=== PATIENT | female | born 1945 | race Caucasian/White ===

== ENCOUNTER 2016-11-14 13:30 | Inpatient (IN) | payer OTHER, BC ==
--- NOTE | 2016-11-18 13:58 | HP ---
Admitting History and Physical - Primary Care Physician PCP: Ashwin Upton - Admission Chief Complaint: left breast cancer History of Present Illness: 71 yo female is S/P right mastectomy (05/02/2016) and chemo for an invasive ductal carcinoma with LN involvement. Prior to surgery, she was noted to have a left breast lesion at 3 oclock that was bxed and benign on path. The patient's left breast core bx slide was reviewed again and was noted to have an invasive lobular component. The MRI done prior to surgery was negative for suspicious finding in the left breast. Decision was made to continue with chemo. Patient presented after chemo for surgical discussion about the left breast cancer. Patient is now presenting for left mastectomy, snbx poss andx with reconstruction. History Source: Patient Limitations to Obtaining History: No Limitations - Past Medical History Heme/Onc: Yes: Cancer (right breast cancer 2012 and 2015) Musculoskeletal: Yes: Osteoarthritis Endocrine: Yes: Hypothyroidism Additional Past Medical History: Rheumatoid arthritis - Past Surgical History Past Surgical History: Yes: Joint Replacement (TKR 2008), Mastectomy (right with andx and reconstruction (04/2016)) Additional Past Surgical History: tendon repair of finger 2000 - Smoking History Smoking history: Never smoked Have you smoked in the past 12 months: No - Alcohol/Substance Use Hx Alcohol Use: No Home Medications - Allergies Allergies/Adverse Reactions: Allergies Allergy/AdvReac Type Severity Reaction Status Date / Time codeine AdvReac Severe STOMACH Verified 05/02/16 11:44 NAUSEA CARBACAINE AdvReac Intermediate Rash Uncoded 05/02/16 11:44 - Home Medications Home Medications: Ambulatory Orders B Infantis/B Ani/B Michael/B Bifid [Probiotic 4X Caplet] 2 each PO BID 03/25/13 Levothyroxine [Synthroid] 50 mcg PO DAILY 03/25/13 Minocycline HCl 100 mg PO DAILY 03/25/13 Ascorbic Acid [Vitamin C -] 500 mg PO BID 04/23/16 Bromelains 500 mg PO BID 04/23/16 Diclofenac Sodium/Misoprostol [Arthrotec 75 mg-200 Mcg Tab] 1 each PO BID Metoprolol Succinate [Toprol Xl] 25 mg PO BID 04/23/16 Multivitamins [Tab-A-Vit -] 1 tab PO DAILY 04/23/16 Red Yeast Rice 600 mg PO DAILY 04/23/16 Resveratrol 100 mg PO DAILY 04/23/16 Turmeric [Curcumin] 250 gm MC DAILY 04/23/16 Ubidecarenone [Co Q-10] 100 mg PO DAILY 04/23/16 Vitamin B Complex 1 each PO BID 04/23/16 Alprazolam [Xanax] 0.5 mg PO PRN PRN 05/02/16 Family Disease History - Family Disease History Family Disease History: CA: Father (pancreatic vs colon cancer), Other: Mother ( CVA) Review of Systems - Review of Systems Cardiovascular: reports: No Symptoms Respiratory: reports: No Symptoms Physical Examination Constitutional: Yes: Well Nourished, Calm Breast(s): Yes: Other (Well healed right chest incision over the tissue communication spec. No suspicious masses or adenopathy noted on the left side.) Problem List - Problems (1) Breast cancer, left Code(s): C50.912 - MALIGNANT NEOPLASM OF UNSPECIFIED SITE OF LEFT FEMALE BREAST Qualifiers: Breast location: overlapping sites of breast Patient sex: female Qualified Code(s): C50.812 - Malignant neoplasm of overlapping sites of left female breast Assessment/Plan Left mastectomy with snbx, possible andx and reconstruction
[2016-11-29 17:03] VITALS: BMI 24.2
[2016-12-05] MEDS ORDERED: DEXAMETHASONE SOD PHOSPHATE/PF 10 MG/ML SDV ONE (10:37)
[2016-12-05] MEDS ORDERED: MIDAZOLAM HCL 2 MG/2 ML SINGLE DOSE VIAL ONE (10:38)
[2016-12-05] MEDS ORDERED: ROPIVACAINE HCL 0.5% 30ML VIAL ONE (10:38)
[2016-12-05] MEDS ORDERED: ACETAMINOPHEN 325 MG TABLET (FP) PO PRN (13:48)
[2016-12-05] MEDS ORDERED: ONDANSETRON 4 MG/2 ML VIAL IVPB PRN (13:48)
[2016-12-05] MEDS ORDERED: ZOLPIDEM TARTRATE 5 MG TABLET PO PRN (13:48)
[2016-12-05] MEDS ORDERED: DESFLURANE GAS 240 ML BOTTLE IH ONE (13:50)
[2016-12-05] MEDS ORDERED: DEXTROSE 5%-0.45% SALINE 1,000 ML IV SCH (14:00)
[2016-12-05] MEDS ORDERED: oxyCODONE HCL 5 MG TABLET PO PRN ×2 (15:13)
[2016-12-05] MEDS: PROMETHAZINE HCL 25 MG/1 ML VIAL IVPUSH ONE ×2 (15:15→16:11)
[2016-12-05] MEDS ORDERED: LACTATED RINGERS SOLUTION 1,000 ML IV SCH (15:15)
[2016-12-05] MEDS: CEFAZOLIN 1 GM/D5W 50 ML IVPB SCH ×2 (16:11→21:11)
[2016-12-05] MEDS ORDERED: hydrALAZINE HCL 50 MG TABLET (FP) PO SCH (22:00)
[2016-12-05] MEDS ORDERED: METOPROLOL SUCCINATE 25 MG TAB.SR.24H (FP) PO SCH (22:00)
[2016-12-06] MEDS: CEFAZOLIN 1 GM/D5W 50 ML IVPB SCH ×2 (02:06→09:00)
[2016-12-06 06:08] VITALS: BP 112/62; TEMP 98.1
[2016-12-06] MEDS ORDERED: LEVOTHYROXINE NA 50 MCG TABLET (FP) PO SCH (07:00)
[2016-12-06 08:37] LABS: MCH 26.5 pg (25.7-33.7); MCHC 32.8 g/dl (32.0-36.0); MEAN CELL VOLUME 80.5 fl (80-96); MEAN PLT VOLUME 8.3 fl (7.5-11.1); PLATELET COUNT 294 K/MM3 (134-434); RDW 14.6 % (11.6-15.6); WHITE BLOOD COUNT 7.9 K/mm3 (4.0-10.8)
--- NOTE | 2016-12-06 09:21 | PN ---
Progress Note, Physician Chief Complaint: S/P left mastectomy with tissue disk sander, snbx with lymphoscintogram POD#1 History of Present Illness: Patient seen this am and reports occasional burning sensation in the axilla but otherwise has good pain control. Patient is comfortable and would like to be discharged today. - Current Medication List Current Medications: Active Medications Acetaminophen (Tylenol -) 650 mg PO Q4H PRN PRN Reason: FEVER Last Admin: 12/06/16 02:06 Dose: 650 mg Fentanyl (Sublimaze Injection -) 25 mcg IVPUSH [id number] PRN PRN Reason: PAIN Stop: 12/08/16 15:17 Heparin Sodium (Porcine) (Heparin -) 5,000 unit SQ BID SANJAY Hydralazine HCl (Apresoline -) 50 mg PO HS [facility] Last Admin: 12/05/16 21:11 Dose: Not Given Hydralazine HCl (Apresoline -) 25 mg PO DAILY SANJAY Cefazolin Sodium (Ancef 1 Gm Premixed Ivpb -) 50 mls @ 100 mls/hr IVPB Q6H-IV SANJAY Stop: 12/12/16 14:59 Last Admin: 12/06/16 02:06 Dose: 100 mls/hr Dextrose/Sodium Chloride (D5-1/2ns -) 1,000 mls @ 100 mls/hr IV ASDIR SANJAY Last Admin: 12/05/16 16:09 Dose: Not Given Lactated Ringer's (Lactated Ringers Solution) 1,000 mls @ 125 mls/hr IV ASDIR SANJAY Last Admin: 12/05/16 16:11 Dose: Not Given Levothyroxine Sodium (Synthroid -) 50 mcg PO DAILY@0700 [facility] Last Admin: 12/06/16 06:23 Dose: 50 mcg Metoprolol Succinate (Toprol Xl -) 50 mg PO DAILY SANJAY Metoprolol Succinate (Toprol Xl -) 25 mg PO HS [facility] Last Admin: 12/05/16 21:12 Dose: Not Given Ondansetron HCl (Zofran Injection) 4 mg IVPB Q6H PRN PRN Reason: NAUSEA AND/OR VOMITING Oxycodone HCl (Roxicodone -) 5 mg PO Q3H PRN PRN Reason: PAIN LEVEL 1-5 Oxycodone HCl (Roxicodone -) 10 mg PO Q3H PRN PRN Reason: PAIN LEVEL 6-10 Zolpidem Tartrate (Ambien -) 5 mg PO HS PRN PRN Reason: Insomnia - Objective Vital Signs: Vital Signs Temperature 98.1 F 12/06/16 06:00 Pulse Rate 88 12/06/16 06:00 Respiratory Rate 18 12/06/16 09:00 Blood Pressure 112/62 12/06/16 06:00 O2 Sat by Pulse Oximetry (%) 94 L 12/06/16 09:00 Constitutional: Yes: Well Nourished, Calm Breast(s): Yes: Left (Left flap is warm with steristrips in place. No swelling , discharge or erythema noted. OSVALDO intact with serosanginous discharge) Labs: CBC, BMP 12/06/16 07:47 Problem List - Problems (1) Breast cancer, left Assessment/Plan: Plan: Discharge home today on axbx. Patient only wants to take Tylenol ES Make appt to see Dr. Zaidi and Dr. Upton next week Monitor OSVALDO output. Code(s): C50.912 - MALIGNANT NEOPLASM OF UNSPECIFIED SITE OF LEFT FEMALE BREAST Qualifiers: Breast location: overlapping sites of breast Patient sex: female Qualified Code(s): C50.812 - Malignant neoplasm of overlapping sites of left female breast; Z17.0 - Estrogen receptor positive status [ER+]
[2016-12-06 09:48] VITALS: PULSE 97
[2016-12-06] MEDS ORDERED: HEPARIN NA (PORCINE) 5,000 UNITS/ML 1ML VIAL SQ SCH (10:00)
[2016-12-06] MEDS ORDERED: METOPROLOL SUCCINATE 50 MG TAB.SR.24H (FP) PO SCH (10:00)
[2016-12-06] MEDS ORDERED: hydrALAZINE HCL 25 MG TABLET (FP) PO SCH (10:00)
--- NOTE | 2016-12-06 10:04 | DS ---
Physical Examination Vital Signs: Vital Signs Temperature 98.1 F 12/06/16 06:00 Pulse Rate 97 H 12/06/16 09:48 Respiratory Rate 18 12/06/16 09:00 Blood Pressure 112/62 12/06/16 06:00 O2 Sat by Pulse Oximetry (%) 96 12/06/16 09:48 Constitutional: Yes: Well Nourished, Calm Wound/Incision: Yes: Clean/Dry, Well Approximated Labs: CBC, BMP 12/06/16 07:47 Discharge Summary Reason For Visit: LEFT BREAST CA Current Active Problems Breast cancer, left (Acute) Condition: Good - Instructions Diet, Activity, Other Instructions: BREAST SURGERY INSTRUCTIONS Syd Upton M.D., FACS Ashwin Upton M.D., MATTIE Miller M.D., FACS 1. Please call the office at to make a follow up appointment with your surgeon. This number can be also used for any urgent issues you may have. 2. Call us immediately if any of the following occur: *Bleeding from the incision or drain site (a small amount is normal) *Fever or chills *Redness and worsening tenderness around the surgical site *Drainage of pus or fluid from the incision or drain site 3. You may change the surgical dressing two (2) days after your surgery, and may shower then. If you have drains, you may shower after they have been removed, until then take a sponge bath. 4. It is normal for there to be some bruising and tenderness around the surgical site, and the breast may also be firm in this area. 5. Please wear a comfortable bra (sports or surgical bra) all day and all night until your first follow-up visit with your surgeon. 6. The pain medicine you have been prescribed may make you constipated; make sure you drink plenty of water. You may use an over the counter laxative if needed. 7. You may resume your normal diet after surgery, although you may want to avoid rich foods for the first twenty-four (24) hours after surgery. Alcoholic drinks should be avoided while taking the prescribed pain medicine. 8. You may resume normal activities as long as there is no discomfort, but do not do upper body exercises until after your follow-up appointment. Do not lift anything heavier than a large phone book. You may resume driving once you have stopped taking the prescribed pain medicine and feel comfortable doing arm movements. Referrals: Ashwin Upton MD [Staff Physician] - Disposition: HOME - Home Medications Comprehensive Discharge Medication List: Ambulatory Orders Levothyroxine [Synthroid -] 50 mcg PO DAILY 03/25/13 Minocycline HCl 100 mg PO DAILY 03/25/13 Metoprolol Succinate [Toprol Xl] 50 mg PO DAILY 04/23/16 Vitamin B Complex 1 each PO BID 04/23/16 Hydralazine HCl 50 mg PO HS 11/29/16 Hydralazine HCl [Apresoline -] 25 mg PO DAILY 11/29/16 Metoprolol Succinate [Toprol XL -] 25 mg PO HS 11/29/16 Cefadroxil 500 mg PO BID #20 capsule 12/06/16
--- NOTE | 2016-12-06 10:36 | PN ---
Progress Note, Physician Chief Complaint: Pt is s/p left breast mastectomy with sentinel node biopsy and TE placement with alloderm - Current Medication List Current Medications: Active Medications Acetaminophen (Tylenol -) 650 mg PO Q4H PRN PRN Reason: FEVER Last Admin: 12/06/16 02:06 Dose: 650 mg Fentanyl (Sublimaze Injection -) 25 mcg IVPUSH [id number] PRN PRN Reason: PAIN Stop: 12/08/16 15:17 Heparin Sodium (Porcine) (Heparin -) 5,000 unit SQ BID SANJAY Hydralazine HCl (Apresoline -) 50 mg PO HS [facility] Last Admin: 12/05/16 21:11 Dose: Not Given Hydralazine HCl (Apresoline -) 25 mg PO DAILY SANJAY Cefazolin Sodium (Ancef 1 Gm Premixed Ivpb -) 50 mls @ 100 mls/hr IVPB Q6H-IV SANJAY Stop: 12/12/16 14:59 Last Admin: 12/06/16 02:06 Dose: 100 mls/hr Dextrose/Sodium Chloride (D5-1/2ns -) 1,000 mls @ 100 mls/hr IV ASDIR [facility] Last Admin: 12/05/16 16:09 Dose: Not Given Lactated Ringer's (Lactated Ringers Solution) 1,000 mls @ 125 mls/hr IV ASDIR [facility] Last Admin: 12/05/16 16:11 Dose: Not Given Levothyroxine Sodium (Synthroid -) 50 mcg PO DAILY@0700 [facility] Last Admin: 12/06/16 06:23 Dose: 50 mcg Metoprolol Succinate (Toprol Xl -) 50 mg PO DAILY [facility] Metoprolol Succinate (Toprol Xl -) 25 mg PO HS [facility] Last Admin: 12/05/16 21:12 Dose: Not Given Ondansetron HCl (Zofran Injection) 4 mg IVPB Q6H PRN PRN Reason: NAUSEA AND/OR VOMITING Oxycodone HCl (Roxicodone -) 5 mg PO Q3H PRN PRN Reason: PAIN LEVEL 1-5 Oxycodone HCl (Roxicodone -) 10 mg PO Q3H PRN PRN Reason: PAIN LEVEL 6-10 Zolpidem Tartrate (Ambien -) 5 mg PO HS PRN PRN Reason: Insomnia - Objective Vital Signs: Vital Signs Temperature 98.1 F 12/06/16 06:00 Pulse Rate 97 H 12/06/16 09:48 Respiratory Rate 18 12/06/16 09:00 Blood Pressure 112/62 12/06/16 06:00 O2 Sat by Pulse Oximetry (%) 96 12/06/16 09:48 Constitutional: Yes: Well Nourished, No Distress Eyes: Yes: WNL HENT: Yes: WNL Neck: Yes: WNL Cardiovascular: Yes: WNL Respiratory: Yes: WNL Gastrointestinal: Yes: WNL ...Rectal Exam: Yes: Deferred Genitourinary: Yes: WNL Breast(s): Yes: Left, Other (breast with appropriate swelling and ecchymosis. OSVALDO drain holding suction. Steri strips in place c/d/i. No s/s of infection) Musculoskeletal: Yes: WNL Extremities: Yes: WNL Edema: No Wound/Incision: Yes: Clean/Dry, Steri Strips, Dressing Dry and Intact Neurological: Yes: WNL ...Motor Strength: WNL Psychiatric: Yes: WNL Additional Findings/Remarks: Pt will be discharged today. She will cont with post op bra. Please dont get dressing or drains wet. Pt can call office for appt. Labs: CBC, BMP 12/06/16 07:47
--- NOTE | 2016-12-06 13:24 | OP ---
DATE OF OPERATION: 12/05/2016 PREOPERATIVE DIAGNOSIS: Left breast cancer, overlapping regions, with a history of right breast cancer status post right mastectomy. POSTOPERATIVE DIAGNOSIS: Left breast cancer, overlapping regions, with a history of right breast cancer status post right mastectomy. PROCEDURE: Left breast total mastectomy with left axillary sentinel lymph node biopsy and baker pastry reconstruction. ANESTHESIA: General endotracheal anesthesia. PRIMARY SURGEON: Analilia Cr MD MULTIGRAPH OPERATOR: TERE Leyva PRIMARY SURGEON FOR PRACTICE BILLING ASSOCIATE RECONSTRUCTION ON THE LEFT: Analilia Zaidi MD, with his certified surgical first assistant Kaylie physician assistant distribution manager. COMPLICATIONS: There were no complications. DESCRIPTION OF PROCEDURE: Briefly, the patient is a 71-year-old white female who does have a history of undergoing a right breast wide excision back in 2012 for a 1-cm infiltrating ductal cancer with negative sentinel node. It was ER/MD positive and HER-2/eunice negative and she had intraoperative radiation. She was placed on tamoxifen. She then developed a superficial recurrence which had dermal involvement in March 2016 and underwent a right breast mastectomy with baker pastry reconstruction for a multicentric right breast cancer with the largest focus measuring 3.2 cm, which was a poorly differentiated invasive duct cancer which had lymphovascular invasion, and she ended up with 2 out of 17 positive lymph nodes. She had extranodal extension and underwent chemotherapy with AC followed by THP. The patient had had a left breast biopsy prior to that mastectomy, which was read as benign but later was found to have a focus of invasive lobular cancer which was ER/MD positive and HER-2/eunice negative. She underwent chemotherapy and now presents for treatment of the small left breast 3 o'clock infiltrating lobular cancer. She was given the option of a lumpectomy but decided to go forward with a mastectomy. She has refused genetic testing. She was seen by Plastic Surgery, who advised her undergoing an baker pastry on the left side as well. She was brought to the operating room on December 05, 2016. In the holding area site verification was made and informed consent was obtained. She did undergo lymphoscintigraphy at [facility] prior to coming to the [facility] area. She was brought into the operating room and laid on the OR table in the supine position. Venodynes were placed on the lower extremities. Both breasts were sterilely prepped and draped in the usual fashion, and she was given general endotracheal anesthesia. She was given a gram of Ancef prior to incision. Lymphazurin blue 3 mL was injected intradermally and klever-tumorally around the left breast nipple-areolar complex. An incision was made just below the hair-bearing area of the left axilla and a sentinel lymph node biopsy was accomplished. She had 5 sentinel nodes removed, and they had 10-second gamma counts of 3929, 1383, 1150, 2499, and 8169. Three of these nodes were blue. She underwent frozen section of the nodes, which all came back negative. Background count estimate of these 5 nodes was 215. Hemostasis was achieved. At this point the total mastectomy was accomplished with a classical elliptical incision around the nipple-areolar complex, saving enough skin to allow for the reconstruction. Skin flaps were raised superiorly to the level of the clavicle, medially to the level of the sternum, laterally to the level of the latissimus, and inferiorly below the level of the inframammary fold. The breast was taken down off the pectoralis major muscle from medial to lateral, completely removed intact. It was oriented with a long lateral, short superior suture. Specimen radiograph showed removal of the clip in question. Hemostasis was achieved and the wound was copiously irrigated with warm sterile saline. At this point Dr. Mathur became the primary surgeon and performed a subpectoral baker pastry reconstruction. He did use AlloDerm which was sutured into the inferolateral aspect of the left pectoralis major muscle to allow for the reconstruction. Two Berry drains were placed around the baker pastry, brought through separate stab incisions on the lateral skin flaps and secured in place using 3-0 nylon suture. All wounds will be closed and dictated separately by Plastic Surgery using 3-0 PDS suture and a running 4-0 subcuticular PDS suture. We did use the SPY skin perfusion device during the case, which showed good skin perfusion of the flaps. The patient will be extubated at the end of the case and recovered in postanesthesia care unit and will be admitted postoperatively for pain management and wound management. All sponge and needle counts were correct at this point of the case, and estimated blood loss was about 50 mL. She was hemodynamically stable throughout. ANALILIA CR M.D. [id number]
--- NOTE | 2016-12-11 14:40 | PATH ---
Surgical Pathology Report Patient Name: FRANCISCO DURAN Med. Rec. #: [id number] /Age/Gender: 1945 (Age: 71) / F Account: [id number] Location: [facility]END[facility] TO [facility] Taken: 12/05/2016 Received: 12/05/2016 Reported: 12/11/2016 Physicians: Ashwin Upton M.D. Specimen(s) Received A: LEFT AXILLARY SENTINEL NODE. #1 B: LEFT AXILLARY SENTINEL NODE #2 C: LEFT AXILLARY SENTINEL NODE #3 D: LEFT AXILLARY SENTINEL NODE #4 E: LEFT AXILLARY SENTINEL NODE #5 F: LEFT BREAST MASTECTOMY Clinical History Bilateral breast cancer Intraoperative Consult Diagnosis A. Left axillary sentinel node #1, frozen section: One negative lymph node. B. Left axillary sentinel node #2, frozen section: One negative lymph node. C. Left axillary sentinel node #3, frozen section: One negative lymph node. D. Left axillary sentinel node #4, frozen section: One negative lymph node. E. Left axillary sentinel node #5, frozen section: One negative lymph node. Celena Coronel, 12/05/16 Final Diagnosis A. SENTINEL LYMPH NODE #1, LEFT AXILLARY, BIOPSY: ONE LYMPH NODE NEGATIVE FOR METASTATIC CARCINOMA BY H&E AND AE1/AE3 KERATIN IMMUNOSTAIN (0/1). B. SENTINEL LYMPH NODE #2, LEFT AXILLARY, BIOPSY: ONE LYMPH NODE NEGATIVE FOR METASTATIC CARCINOMA BY H&E AND AE1/AE3 KERATIN IMMUNOSTAIN (0/1). C. SENTINEL LYMPH NODE #3, LEFT AXILLARY, BIOPSY: ONE LYMPH NODE NEGATIVE FOR METASTATIC CARCINOMA BY FROZEN SECTION (0/1). NO RESIDUAL LYMPHOID TISSUE IS PRESENT ON PERMANENT SECTIONS. D. SENTINEL LYMPH NODE #4, LEFT AXILLARY, BIOPSY: ONE LYMPH NODE NEGATIVE FOR METASTATIC CARCINOMA BY H&E AND AE1/AE3 KERATIN IMMUNOSTAIN (0/1). E. SENTINEL LYMPH NODE #5, LEFT AXILLARY, BIOPSY: ONE LYMPH NODE NEGATIVE FOR METASTATIC CARCINOMA BY H&E AND AE1/AE3 KERATIN IMMUNOSTAIN (0/1). F. BREAST, LEFT, MASTECTOMY: NO RESIDUAL INVASIVE CARCINOMA IDENTIFIED (SEE COMMENT). FOCAL ATYPICAL LOBULAR HYPERPLASIA (ALH). ASSOCIATED PRIOR BIOPSY SITE CHANGES WITH HEMOSIDERIN LADEN MACROPHAGES PRESENT. BENIGN NIPPLE AND SKIN. SURROUNDING BREAST TISSUE: FIBROCYSTIC CHANGES WITH FOCAL ADENOSIS, DUCT DILATATION, CYSTS FORMATION, STROMAL FIBROSIS AND MICROCALCIFICATIONS IN BENIGN DUCTULES. LYMPH NODES NEGATIVE FOR METASTATIC CARCINOMA (0/10). PATHOLOGIC STAGING: REFER TO CHECKLIST BELOW. RECEPTOR STATUS: REFER TO CHECKLIST BELOW. Comment: Prior core biopsy ([id number]) showed invasive lobular carcinoma in the left breast, classical type, 1-2 mm in the greatest dimension in one core. History of contralateral invasive ductal carcinoma is also noted. History of neoadjuvant therapy is noted. No residual invasive carcinoma is identified in this specimen. While this may be related to the therapeutic response; therapeutic response cannot be graded due to underlying fibrosis associated with the prior biopsy site. Comments Breast Invasive Carcinoma: Surgical Pathology Cancer Case Summary Based on AJCC/UICC TNM, 7th edition Procedure _x_ Total mastectomy (including nipple and skin) Lymph Node Sampling _x_ [place] lymph nodes _x_ Axillary lymph nodes (10) present within the breast specimen Specimen Laterality _x_ Left Tumor Size: Size of Largest Invasive Carcinoma _x_ No residual invasive carcinoma Tumor Focality _x_ No residual invasive carcinoma Macroscopic and Microscopic Extent of Tumor Skin _x_ Negative for carcinoma; no residual invasive carcinoma identified Nipple _x_ No DCIS present Skeletal Muscle _x_ No skeletal muscle present Ductal Carcinoma In Situ (DCIS) _x_ No DCIS is present Histologic Type of Invasive Carcinoma: _x_ No residual invasive carcinoma Histologic Grade: (Winter Histologic Score) Tubular Differentiation _x_ No residual invasive carcinoma Nuclear Pleomorphism _x_ No residual invasive carcinoma Mitotic Rate _x_ No residual invasive carcinoma Overall Grade _x_ No residual invasive carcinoma Margins _x_ Negative for carcinoma; no residual invasive carcinoma identified Lymph-Vascular Invasion _x_ Not identified Lymph Nodes Total number of lymph nodes examined (sentinel and nonsentinel): 15 Number of sentinel lymph nodes examined: 5 Number of lymph nodes with macrometastases (> 2 mm): 0 Number of lymph nodes with micrometastases (>0.2 mm to 2 mm and/or >200cells): 0 Number of lymph nodes with isolated tumor cells (=0.2 mm and =200 cells): 0 Size of largest metastatic deposit (if present): n/a Extranodal Extension _x_ Not applicable Pathologic Staging (pTNM) Primary Tumor (Invasive Carcinoma): ypT0 Regional Lymph Nodes (pN): ypN0 Distant Metastasis (pM): not applicable Biomarker Studies Results of ER and DC studies performed on prior biopsy ([id number]) block at [facility] are as follows: ER (clone [id number] mouse monoclonal antibody by Leica): ~90% nuclear staining with moderate intensity (Positive). DC (clone16 mouse monoclonal antibody by Leica): ~90% nuclear staining with moderate intensity (Positive). Her2 (IHC) & Ki-67 studies were not performed on prior biopsy ([id number]) due to the minute size of invasive carcinoma. Positive and negative controls (internal if applicable) show appropriate results. Formalin fixation and cold ischemic times are within current ASCO/CAP recommendations for ER, DC and Her2 testing. Electronically Signed Minesh Stapleton M.D. Gross Description A.Received fresh for frozen section, labeled "left axillary sentinel node #1" is a 1.3 x 0.7 x 0.2 cm portion of fibrofatty tissue; no definitive lymph node is identified within the tissue. The specimen is entirely submitted for frozen section evaluation. The frozen section residue is entirely submitted in one cassette. B. Received fresh for frozen section evaluation, labeled "left axillary sentinel node #2" is a 0.5 x 0.3 x 0.2 cm lymph node with attached fatty tissue. Frozen section is performed on the lymph node. The frozen section residue is entirely submitted in one cassette. C. Received fresh for frozen section evaluation, labeled "left axillary sentinel node #3" is a 0.3 x 0.2 x 0.2 cm lymph node with attached fatty tissue. Frozen section is performed on the lymph node. The frozen section residue is entirely submitted in one cassette. D. Received fresh for frozen section evaluation, labeled "left axillary sentinel node #4" is a 0.8 x 0.4 x 0.2 cm lymph node with attached fatty tissue. Frozen section is performed on the lymph node. The frozen section residue is entirely submitted in one cassette. E. Received fresh for frozen section evaluation, labeled "left axillary sentinel node #5" is a 0.8 x 0.4 x 0.2 cm lymph node with attached fatty tissue. Frozen section is performed on the lymph node. The frozen section residue is entirely submitted in one cassette. F. Received in formalin, labeled "left breast" is a 595 gram, 16.5 x 16.0 x 4.3 cm. left mastectomy specimen with a short suture marking the superior aspect and a long suture marking the lateral aspect of the specimen, per the surgeon. The anterior surface displays a 10.5 x 4.3 cm castañeda, elliptical portion of skin with a 1.3 cm in diameter nipple. There is a 6.5 x 5.0 x 1.2 cm portion of attached axillary fat present. The deep margin is inked black and the anterior soft tissue margin is inked blue. The specimen is serially sectioned from medial to lateral. Sectioning reveals a focus of hemorrhage in the lower outer quadrant (LOQ), consistent with a previous biopsy site. There is focal firm fibrous tissue surrounding the biopsy site. No definitive masses are identified. The remaining breast parenchyma displays multiple foci of white fibrous tissue. Sectioning of the axillary fat reveals multiple castañeda possible lymph nodes. Cra Officer sections are submitted in 21 cassettes as follows: 1-serially sectioned nipple; 2-subareolar shave; 3-5-LOQ possible previous biopsy site with anterior soft tissue margin; 4-2-vzqrxsmdtn LOQ tissue; 8-9-upper outer quadrant; 10-11-upper inner quadrant; 12-13-lower inner quadrant; 14-retroareolar tissue; 15-skin and anterior soft tissue margin; 16-deep margin; 17-18-one bisected lymph node each; 30-99-ewmrqsfo whole lymph nodes. Time to formalin fixation: 60 minutes Total formalin fixation time: Approximately 28 hours. 12/06/201612/06/2016
== END 2016-12-06 13:09 | disposition home or self-care (01) | DRG 581 ==
LOC: FM/S 12-05 10:17
PROVIDERS: ADMIT Surgery Surgical Oncology; ATTEND Surgery Surgical Oncology
PROC: 0HRU37Z Replacement of Left Breast with Autologous Tissue Substitute, Percutaneous Approach (ICD-10-PCS; 2016-12-05)
PROC: 0HTU0ZZ Resection of Left Breast, Open Approach (ICD-10-PCS; principal; 2016-12-05 12:18)
PROC: 07B60ZX Excision of Left Axillary Lymphatic, Open Approach, Diagnostic (ICD-10-PCS; 2016-12-05 12:18)
PROC: 0HHU0NZ Insertion of Tissue Expander into Left Breast, Open Approach (ICD-10-PCS; 2016-12-05 12:18)
DX: C50.912 Malignant neoplasm of unspecified site of left female breast (principal); E03.9 Hypothyroidism, unspecified; M19.90 Unspecified osteoarthritis, unspecified site; Z17.0 Estrogen receptor positive status [ER+]; Z85.3 Personal history of malignant neoplasm of breast
CPT/HCPCS: 36415; 78195-TC; 85027; 88307-TC; 88309-TC; 88331-TC; 94010; 94760; A9541; J1644

== ENCOUNTER 2017-07-03 10:17 | Day surgery (SDC) | payer OTHER, BC ==
[2017-07-03 11:07] VITALS: BMI 24.4
[2017-07-03] MEDS ORDERED: GENTAMICIN SO4 80 MG/2 ML VIAL ONE ×3 (12:23→15:19)
[2017-07-03] MEDS ORDERED: ceFAZolin SODIUM 1 GM VIAL ONE ×3 (12:23→15:19)
[2017-07-03] MEDS ORDERED: BUPIVACAINE HCL/PF 0.5% (5MG/ML) 10 ML VIAL ONE ×2 (12:27→14:46)
[2017-07-03] MEDS ORDERED: LIDOCAINE 1%/EPI 1:100000 (20 ML MULTI DOSE VIAL) ONE (12:27)
[2017-07-03] MEDS ORDERED: DESFLURANE GAS 240 ML BOTTLE IH ONE (12:33)
[2017-07-03] MEDS ORDERED: SCOPOLAMINE HYDROBROMIDE 1 PATCH PATCH.TD72 ONE (12:34)
[2017-07-03] MEDS ORDERED: ACETAMINOPHEN INJECTION 100 ML IVPB ONE (12:34)
[2017-07-03] MEDS ORDERED: PROPOFOL 20 ML ONE ×5 (12:36)
[2017-07-03] MEDS ORDERED: fentaNYL CITRATE 250 MCG/5 ML VIAL ONE (12:36)
[2017-07-03] MEDS ORDERED: ROCURONIUM BROMIDE 50 MG/5 ML VIAL ONE ×2 (12:38→13:35)
[2017-07-03] MEDS ORDERED: ONDANSETRON 4 MG/2 ML VIAL ONE (12:39)
[2017-07-03] MEDS ORDERED: KETOROLAC TROMETHAMINE 30 MG/1 ML VIAL ONE (12:39)
[2017-07-03] MEDS ORDERED: MIDAZOLAM HCL 2 MG/2 ML SINGLE DOSE VIAL ONE ×2 (12:39)
[2017-07-03] MEDS ORDERED: DEXAMETHASONE SOD PHOSPHATE 4 MG/1 ML VIAL ONE (12:40)
[2017-07-03] MEDS ORDERED: ePHEDrine SULFATE 50 MG/1 ML AMPULE ONE ×3 (13:33→14:39)
[2017-07-03] MEDS ORDERED: LIDOCAINE 1%/EPI 1:100000 (50 ML MULTI DOSE VIAL) INF ONE (13:46)
[2017-07-03] MEDS ORDERED: BACITRACIN 15 GM TUBE TOPICAL OINTMENT TP ONE (14:55)
[2017-07-03] MEDS ORDERED: PHENYLEPHRINE HCL 10 MG/1 ML SINGLE DOSE VIAL ONE (14:55)
[2017-07-03] MEDS ORDERED: SODIUM CHLORIDE 0.9% P/F 10 ML VIAL IJ ONE (14:55)
[2017-07-03] MEDS ORDERED: BUPIVACAINE HCL/PF 0.5% (5MG/ML) 10 ML VIAL IJ ONE (15:02)
[2017-07-03] MEDS ORDERED: GLYCOPYRROLATE 0.2 MG/1 ML VIAL ONE (16:07)
[2017-07-03] MEDS ORDERED: NEOSTIGMINE METHYLSULFATE 0.5 MG/ML - 10 ML MDV ONE (16:07)
[2017-07-03] MEDS ORDERED: BACITRACIN 15 GM TUBE TOPICAL OINTMENT ONE (16:40)
[2017-07-03] MEDS ORDERED: diazePAM 5 MG TABLET PO PRN (17:04)
[2017-07-03] MEDS ORDERED: ONDANSETRON 4 MG/2 ML VIAL IVPUSH PRN ×2 (17:04→17:14)
[2017-07-03] MEDS ORDERED: HYDROmorphone HCL CARPU-JECT 1 MG/1 ML DISP.SYRIN IVPB PRN (17:04)
[2017-07-03] MEDS ORDERED: ACETAMINOPHEN 325 MG TABLET (FP) PO PRN (17:04)
[2017-07-03] MEDS ORDERED: PROMETHAZINE HCL 25 MG/1 ML VIAL IVPUSH PRN (17:14)
[2017-07-03] MEDS ORDERED: oxyCODONE HCL 5 MG TABLET PO PRN (17:14)
[2017-07-03] MEDS ORDERED: LACTATED RINGERS SOLUTION 1,000 ML IV SCH ×2 (17:15)
--- NOTE | 2017-07-03 17:20 | OP ---
Operative Note - Note: Operative Date: 07/03/17 Pre-Operative Diagnosis: Right Breast wound /s/p radiation Operation: right breast removal of Tissue spinner frame with Latissimus dorsi flap and Left breast implant exchange. Findings: right breast fluid collection Implants: silicone to left breast Post-Operative Diagnosis: Same as Pre-op Surgeon: Andres Zaidi Sand Caster Apprentice: Kaylie Kunz Anesthesiologist/MOBILITY ARCHITECT MANAGER: Tirso Montilla Anesthesia: Local, MAC Specimens Removed: Left breast implant. Right breast tissue, skin, and capsule , tissue spinner frame. Estimated Blood Loss (mls): 50 Drains & Tubes with Location: 15 carlito x 2 Operative Report Dictated: Yes
[2017-07-03] MEDS ORDERED: CEFAZOLIN 1 GM/D5W 50 ML IVPB SCH (21:00)
[2017-07-03] MEDS ORDERED: CEFAZOLIN 1 GM PUSH 1 GM/10 ML DISP.SYRIN IVPUSH SCH (21:00)
[2017-07-03] MEDS: CEFAZOLIN 1 GM/D5W 1 GM/50 ML BAG IVPB SCH (22:15)
[2017-07-03] MEDS: CARVEDILOL 25 MG TABLET (FP) PO SCH (22:15)
[2017-07-04] MEDS: CEFAZOLIN 1 GM/D5W 1 GM/50 ML BAG IVPB SCH ×2 (02:03→09:50)
[2017-07-04 05:59] VITALS: BP 101/59; PULSE 83; TEMP 97.6
[2017-07-04] MEDS: CARVEDILOL 25 MG TABLET (FP) PO SCH (09:43)
[2017-07-04] MEDS ORDERED: LEVOTHYROXINE NA 50 MCG TABLET (FP) PO SCH (10:00)
--- NOTE | 2017-07-04 16:25 | OP ---
DATE OF OPERATION: 07/03/2017 SURGEON: Analilia Zaidi M.D. MOLD WORKER SURGEON: Maxx Delgado PREOPERATIVE DIAGNOSIS: 1. Bilateral acquired chest wall deformity status post bilateral mastectomy. 2. Exposed right breast implant post radiation therapy and contracture. 3. Pain and capsular contracture bilateral breasts. POSTOPERATIVE DIAGNOSIS: 1. Bilateral acquired chest wall deformity status post bilateral mastectomy. 2. Exposed right breast implant post radiation therapy and contracture. 3. Pain and capsular contracture bilateral breasts. 4. Right breast necrotic tissue and hematoma. OPERATIVE PROCEDURE: 1. Right capsulectomy, radical resection of skin of chest wall, removal of implant. 2. Latissimus dorsi myocutaneous flap reconstruction of right breast. 3. Left breast capsulectomy removal and replacement of left breast implant. OPERATIVE INDICATION: The patient is a 72-year-old white female who presented this past week with an exposed right breast implant after radiation therapy and capsular contracture with pain, discomfort, and difficulties with daily activities on the right breast. She was seen by both Dr. Upton and myself with impending exposure. The risks and benefits, surgical versus nonsurgical alternatives, as well as material complications of removal and replacement were discussed with the patient. Today in the operating room on opening the capsule itself, a large amount of purulent appearing necrotic tissue was removed from the pocket itself, and decision not to place a new implant was made due to this factor. The patient was scheduled to undergo a right latissimus dorsi myocutaneous flap for reconstructive purposes. An excision of a large block of skin and subcutaneous tissue in the right chest wall. OPERATIVE PROCEDURE IN DETAIL: Patient was taken to the operating room, and after induction of general anesthesia in the supine position, she was turned into the left lateral decubitus position and padded in the usual fashion for latissimus dorsi surgery. She was placed onto the beanbag and protected with an arm and all the padding associated with the procedure. In this lateral position she was prepped and draped in usual fashion, and then the latissimus dorsi myocutaneous flap which was outlined in a standing position preoperatively, was re-outlined on the back area, measuring approximately 22 x 9 cm in greatest dimension. The area after timeout was injected with 1% local lidocaine anesthesia, 1:100,000 epinephrine, and then after allowing topical anesthesia and hemostasis, an incision was made down to the skin and subcutaneous tissue according to the pattern, and then down through the subcutaneous tissue to the underlying fascia. Dissection was carried along the fascia of the latissimus dorsi muscle inferiorly down to the area of the iliac crest and superiorly to the upper border of the muscle itself. Hemostasis was meticulously obtained throughout, and the dissection was carried out, elevating the latissimus dorsi muscle in the usual fashion, leaving it attached superiorly. The thoracodorsal vessels were seen and shown good viability. Skin and subcutaneous tissue also shows good blood flow. Flap was transferred to the lateral chest wall and a pocket, and then the skin and subcutaneous tissue was advanced and closed over a 15 Berry drain with 2-0 Vicryl sutures over the deep tissue of the bag, and 2-0 V-Loc in a subcuticular fashion on the deep dermis. At this point, the patient was repositioned to the supine position. She was placed in supine position. The beanbag removed and re-prepping and draping was carried out over entire extent. At this point, attention was turned to the right breast. An elliptical excision of the skin and subcutaneous tissue was planned on the anterior chest wall and the severely ischemic and injured skin and subcutaneous. Upon making this incision and into the deeper tissues, a large amount of seropurulent material was extruded into the wound. Approximately 300 mL of clotted blood and old material was extruded from the wound. Cultures were taken for culture and sensitivity. At this point, the decision was made that implant could not be replaced. Dissection was carried out, exposing the latissimus dorsi flap and then transferring it to the anterior chest wall. After copious irrigation and pulsed lavage irrigation of the wound and debridement of all necrotic tissue that was easily removed, this tissue was sent for pathologic diagnosis. The flap was then inset using 2-0 Vicryl sutures on the deep tissue, 3-0 in the deep dermal fashion, and a 5-0 nylon suture in a running fashion on the skin. No implant was placed because of the possibility of infection. Attention was then turned after closing this wound and re-prepping and draping to the left breast. The incision was made through the mastectomy scar, down through the skin and subcutaneous tissue. The implant was then removed and sent for pathologic diagnosis, and using a no-touch technique, a new implant was chosen. A Natvanesae Inspira SRM style 375 mL implant was placed into the left breast pocket with good clean tissues and no evidence of infection or problems. This was quickly closed using 3-0 PDS sutures without contamination in the usual fashion running along the incision itself, and then 2 layers of suture were placed into this deep tissue and skin. She tolerated the procedure well. All wounds were dressed sterilely with Dermabond, Steri-Strips, and a compressive dressing. She was awakened, extubated, and transferred to the recovery room in satisfactory condition. ANALILIA ZAIDI M.D. [id number]
--- NOTE | 2017-07-07 11:43 | PATH ---
Surgical Pathology Report Patient Name: FRANCISCO DURAN Med. Rec. #: [id number] /Age/Gender: 1945 (Age: 72) / F Account: [id number] Location: [facility] Taken: 07/03/2017 Received: 07/03/2017 Reported: 07/07/2017 Physicians: Andres Zaidi Specimen(s) Received A: RIGHT BREAST TISSUE B: RIGHT BREAST IMPLANT C: LEFT BREAST IMPLANT Clinical History History of breast cancer and radiation, bilateral mastectomy Final Diagnosis A. RIGHT BREAST TISSUE, EXCISION: SKIN WITH ULCERATION, WITH NECROSIS OF UNDERLYING SOFT TISSUE. B. ASSEMBLER LEATHER GOODS, RIGHT BREAST, REMOVAL: BREAST IMPLANT (GROSS ONLY). C. ASSEMBLER LEATHER GOODS, LEFT BREAST, REMOVAL: BREAST IMPLANT (GROSS ONLY). Electronically Signed Anselmo Espinoza M.D. Gross Description A. Received in formalin labeled "right breast tissue," is a 15.0 x 11.0 x 1.0 cm aggregate of multiple castañeda-thayer, necrotic appearing portions of skin and fibrous capsule. Clinical Lab Clerk sections are submitted in one cassette. B. Received fresh labeled "right breast implant," is a 13.0 x 11.0 x 2.0 cm breast tissue gear finisher. No soft tissue is present. No sections are submitted, gross only. C. Received fresh labeled "left breast implant," is a 13.0 x 11.0 x 2.0 cm breast tissue gear finisher. No soft tissue is present. No sections are submitted, gross only. 07/04/2017 saudi07/04/2017
== END 2017-07-04 11:00 | disposition home or self-care (01) ==
LOC: FASU 10:17 → FM/S 18:16 → FASU 07-04 11:00
PROVIDERS: ATTEND Plastic Surgery
PROC: 0KXF0Z5 Transfer Right Trunk Muscle, Latissimus Dorsi Myocutaneous Flap, Open Approach (ICD-10-PCS; 2017-07-03)
PROC: 0HPU0JZ Removal of Synthetic Substitute from Left Breast, Open Approach (ICD-10-PCS; principal; 2017-07-03 13:47)
PROC: 0HRU0JZ Replacement of Left Breast with Synthetic Substitute, Open Approach (ICD-10-PCS; 2017-07-03 13:47)
DX: M95.4 Acquired deformity of chest and rib (principal); Z90.13 Acquired absence of bilateral breasts and nipples; T85.44XA Capsular contracture of breast implant, initial encounter; Y82.8 Other medical devices associated with adverse incidents; Y92.9 Unspecified place or not applicable; Y83.9 Surgical procedure, unspecified as the cause of abnormal reaction of the patient, or of later complication, without mention of misadventure at the time of the procedure; Z92.3 Personal history of irradiation; L98.8 Other specified disorders of the skin and subcutaneous tissue; N64.89 Other specified disorders of breast
CPT/HCPCS: 87070; 87186; 87205; 88300-TC; 88304-TC; 94010; 94760